=== PATIENT | female | born 1945 | race Caucasian/White ===

== ENCOUNTER 2018-03-10 10:57 | Inpatient (IN) | payer MEDICARE, BC ==
[~2018-03-10] VITALS: Ht 160 cm; Wt 59.0 kg
[~2018-03-10 10:57] MED LIST: AMLO5TAB4 PO; FLUO10CA26 PO; METO100T7 PO; [UNRECOGNIZED DRUG - CODE] PO
[2018-03-10] MEDS ORDERED: MORPHINE SULFATE INJ 2 MG/ML DISP.SYRIN IV ONE (11:30)
[2018-03-10] MEDS ORDERED: IV NS 0.9% 1,000 ML BAG IV ONE (11:30)
[2018-03-10] MEDS ORDERED: ONDANSETRON HCL/PF 4 MG/2 ML VIAL IVP ONE (11:30)
--- NOTE | 2018-03-10 11:41 | NUR ---
BIBRA 87 C/O SYNCOPAL EPISODE CD=[id number]/DL IN THE FIELD. PT AAOX3, VSS. DENIES CP, SOB, DIZZINESS, FREITAS, WEAKNESS, N/V @ THIS TIME. C/O LBP 02/05. PT SEEN & EVAL'D BY DR. MAJOR. WILL CONT TO MONITOR.
[2018-03-10] MEDS ORDERED: ONDANSETRON HCL/PF 4 MG/2 ML VIAL ONE (11:43)
[2018-03-10] MEDS ORDERED: MORPHINE SULFATE INJ 4 MG/ML DISP.SYRIN ONE (11:44)
[2018-03-10 11:54] LABS: CALCIUM, SERUM 8.8 mg/dL (8.5-10.1); CARBON DIOXIDE 30 mmol/L (21-32); CHLORIDE 97 mmol/L (98-107); CREATININE 0.9 mg/dL (0.6-1.3); GLUCOSE 108 mg/dL (74-106); POTASSIUM 4.2 mmol/L (3.5-5.1); SODIUM SERUM 130 mmol/L (136-145); UREA NITROGEN, BLOOD 19 mg/dL (7-18)
[2018-03-10 11:56] LABS: BASOPHILS # (AUTO) 0.1 /CMM (0.0-0.2); BASOPHILS % (AUTO) 1.1 % (0.0-2.0); HEMOGLOBIN 12.6 g/dL (11.5-14.8); LYMPHOCYTES # (AUTO) 0.7 /CMM (0.8-4.8); LYMPHOCYTES % (AUTO) 7.6 % (20.0-44.0)
[2018-03-10 12:00] LABS: ALANINE AMINOTRANSFERASE 22 U/L (12-78); ALBUMIN 3.8 g/dL (3.4-5.0); ALKALINE PHOSPHATASE 79 U/L (46-116); ASPARTATE AMINOTRANSFERASE 25 U/L (15-37); BILIRUBIN,DIRECT 0.2 mg/dL (0.0-0.2); BILIRUBIN,TOTAL 0.9 mg/dL (0.2-1.0); TOTAL PROTEIN, SERUM 7.1 g/dL (6.4-8.2)
[2018-03-10 12:01] LABS: TROPONIN I < 0.017 ng/mL (0.00-0.056)
[2018-03-10 12:03] LABS: INR 0.97 (0.85-1.15)
[2018-03-10 12:10] LABS: EOSINOPHILS % (AUTO) 0.6 % (0.0-6.0); HEMATOCRIT 38 % (33-45); MEAN CORPUSCULAR HEMOGLOBIN 29 PG (26.0-33.0); MEAN CORPUSCULAR HGB CONC 33 g/dl (31.0-36.0); MEAN CORPUSCULAR VOLUME 89 fL (82-100); MONOCYTES # (AUTO) 0.8 /CMM (0.1-1.30); MONOCYTES % (AUTO) 8.5 % (2.0-12.0); NEUTROPHILS # (AUTO) 7.9 /CMM (1.8-8.9); NEUTROPHILS % (AUTO) 82.2 % (43.0-81.0); PLATELET COUNT (AUTO) 311 /CMM (150-450); RDW COEFFICIENT OF VARIATION 12.5 (11.5-15.0); WHITE BLOOD COUNT (AUTO) 9.6 K/uL (4.3-11.0)
--- NOTE | 2018-03-10 12:27 | NUR ---
CALLED NURSING MARKETING ANALYTICS ANALYST AND REQUESTED A TELE BED FOR THIS PT.
--- NOTE | 2018-03-10 13:00 | NUR ---
CALLED [facility] FOR PANEL CALL AND DR VILLA WAS PAGED.
[2018-03-10] MEDS ORDERED: FLUO20CA36 PO (13:10)
[2018-03-10] MEDS ORDERED: AMLO2.5T3 PO (13:10)
[2018-03-10] MEDS ORDERED: CETI-102 PO (13:10)
[2018-03-10] MEDS ORDERED: PANT20TA2 PO (13:10)
--- NOTE | 2018-03-10 13:18 | NUR ---
PT RESTING EYES CLOSED BUT EASILY AWAKEN WITH VERBAL STIMULI. PT STS LBP 08/08 & JENNIFER WELL. DENIES CP, SOB, DIZZINESS, N/V @ THIS TIME. WILL CONT TO MONITOR.
--- NOTE | 2018-03-10 13:31 | NUR ---
PT IS ASSIGNED TO TELE RM#: [id number], DX: SYNCOPE, AND ACCEPTING MD: DR ALLEN VALVERDE
--- NOTE | 2018-03-10 14:30 | NUR ---
CLINICAL COORDINATOR OPENING. PT RECEIVED A&0X3. PT WITH O2 VIA NC AT 2LPM FOR COMFORT. PT SPO2 WNL NO RESP DISTRESS. PT REPORTS 3/10 PAIN TO TAILBONE AREA. PT WITH IVC AT R WRIST, SALINE FLUSH PATENT, IVF TO START. PT HAS MEDICATIONS TO SUBMIT TO PHARMACY. PT BRIEFED ON POC AND IS WITHOUT CONCERN OR COMPLAINT AT THIS TIME.
[2018-03-10] MEDS ORDERED: ENOXAPARIN SODIUM 40 MG/0.4 ML DISP.SYRIN SQ SCH (15:00)
[2018-03-10] MEDS ORDERED: HYDROCODONE/APAP 5/325MG 1 EACH TABLET PO PRN (15:00)
[2018-03-10] MEDS ORDERED: MAG HYDROX/AL HYDROX/SIMETH 30 ML UDC PO PRN (15:00)
[2018-03-10] MEDS ORDERED: ONDANSETRON HCL/PF 4 MG/2 ML VIAL IVP PRN (15:00)
[2018-03-10] MEDS ORDERED: MAGNESIUM HYDROXIDE 30 ML UDC PO PRN (15:00)
[2018-03-10] MEDS ORDERED: ZOLPIDEM TARTRATE 5 MG TABLET PO PRN (15:00)
[2018-03-10] MEDS ORDERED: Z GUARD REMEDY 2 OZ OINT TP PRN (15:00)
[2018-03-10 15:03] LABS: BAND % (MANUAL) 4 % (0.0-5.0); LYMPHOCYTES % (MANUAL) 12 % (16-48); MONOCYTES % (MANUAL) 2 % (0-11.0); NEUTROPHILS % (MANUAL) 82 (42-76)
[2018-03-10] MEDS: IV NS 0.9% 1,000 ML IV PRN (15:15)
[2018-03-10] MEDS: ACETAMINOPHEN 325 MG TABLET PO PRN (15:15)
[2018-03-10 16:00] VITALS: BP 121/77
--- NOTE | 2018-03-10 18:30 | NUR ---
OFFICE ELECTRICIAN CLOSING. PT WITHOUT DISTRESS OR DISCOMFORT AT THIS TIME. IVF PER RX. BED INLOWEST LOCKED WITH HANDRAILSX2 AND CALL CORONA WITHIN REACH. ALL DAY NURSE DUTIES ATTENDED TO AND PT WITHOUT CONCERN OR COMPLAINT AT THIS TIME.
--- NOTE | 2018-03-10 19:30 | NUR ---
DEVULCANIZER TENDER NOTES RECEIVED PATIENT IN BED AWAKE. ALERT AND ORIENTED X4. FAMILY AT BEDSIDE. BREATHING EVEN AND UNLABORED. NO SOB NOTED. TOLERATING ROOM -AIR. NO COMPLAINTS OF PAIN OR DISCOMFORT. IV ACCESS ON LEFT FOREARM #20 INTACT AND PATENT - INFUSING NS @ 75CC/HR. ALL OTHER NEEDS ATTENDED TO. CALL LIGHT WITHIN REACH. BED ON LOWEST LOCKED POSITION. WILL CONTINUE TO MONITOR.
[2018-03-10 20:00] VITALS: BP 113/69
[2018-03-10 21:35] LABS: THYROID STIMULATING HORMONE 1.665 uIU/mL (0.358-3.74)
[2018-03-11] VITALS: BP 130/72
[2018-03-11] MEDS: ACETAMINOPHEN 325 MG TABLET PO PRN ×2 (02:56→09:08)
--- NOTE | 2018-03-11 02:56 | NUR ---
RN ALLERGY NOTES PATIENT COMPLAINED OF PAIN 10/10 ON BACK. ACHING, ESPECIALLY DURING POSITION CHANGE. OFFERED TO GIVE PATIENT A NORCO, BUT PATIENT REFUSED. PATIENT WOULD RATHER HAVE A TYLENOL STATING IT IS MORE EFFECTIVE FOR HER. TYLENOL GIVEN. WILL CONTINUE TO MONITOR.
[2018-03-11 04:00] VITALS: BP 121/71
[2018-03-11] MEDS: IV NS 0.9% 1,000 ML IV PRN (06:09)
[2018-03-11 06:37] LABS: BASOPHILS % (AUTO) 0.4 % (0.0-2.0); EOSINOPHILS % (AUTO) 2.9 % (0.0-6.0); HEMATOCRIT 35 % (33-45); HEMOGLOBIN 11.2 g/dL (11.5-14.8); LYMPHOCYTES % (AUTO) 13.9 % (20.0-44.0); MEAN CORPUSCULAR HEMOGLOBIN 30 PG (26.0-33.0); MEAN CORPUSCULAR HGB CONC 32 g/dl (31.0-36.0); MEAN CORPUSCULAR VOLUME 92 fL (82-100); MONOCYTES # (AUTO) 0.8 /CMM (0.1-1.30); MONOCYTES % (AUTO) 11.1 % (2.0-12.0); NEUTROPHILS # (AUTO) 5.2 /CMM (1.8-8.9); NEUTROPHILS % (AUTO) 71.7 % (43.0-81.0); PLATELET COUNT (AUTO) 263 /CMM (150-450); RDW COEFFICIENT OF VARIATION 13.3 (11.5-15.0); RED BLOOD CELL COUNT(AUTO) 3.78 MIL/uL (4.0-5.2); WHITE BLOOD COUNT (AUTO) 7.3 K/uL (4.3-11.0)
[2018-03-11 06:53] LABS: CALCIUM, SERUM 7.9 mg/dL (8.5-10.1); CARBON DIOXIDE 29 mmol/L (21-32); CHLORIDE 102 mmol/L (98-107); CREATININE 0.8 mg/dL (0.6-1.3); GLUCOSE 91 mg/dL (74-106); MAGNESIUM 1.7 mg/dL (1.8-2.4); PHOSPHORUS 3.4 mg/dL (2.5-4.9); SODIUM SERUM 137 mmol/L (136-145); UREA NITROGEN, BLOOD 13 mg/dL (7-18)
--- NOTE | 2018-03-11 07:00 | NUR ---
GUILLAUME SALAZAR. TELE.SR. PT RECEIVED A&0X3, PT WITH O2 VIA NC AT 2LPM, SPO2 WNL. PT REPORTS MODERATE PAIN CONTROLLED BY PRN TYLENOL AT THIS TIME. PT WITH IVC INTACT AND OPERATIONAL WITH IVF PER RX. PT BED IN LOWEST LOCKED POSITION WITH HANDRAILSX2 AND CALL CORONA WITH REACH. BY BRIEFED ON TODAY'S POC AND IS WITHOUT CONCERN OR COMPLAINT. WILL CONTINUE POC.
--- NOTE | 2018-03-11 07:11 | NUR ---
TRADE SPECIALIST CLOSING NOTES PATIENT IN BED AWAKE. ALERT AND ORIENTED X4. BREATHING EVEN AND UNLABORED. NO SOB NOTED. ON 2L OXYGEN VIA NC FOR COMFORT. WITH MILD PAIN ON BACK. TYLENOL LAST ADMINISTERED AT 0256 - PATIENT STATES IT IS EFFECTIVE. IV ACCESS ON LEFT FOREARM #20 INTACT AND PATENT - INFUSING NS @ 75CC/HR. ALL OTHER NEEDS ATTENDED TO. CALL LIGHT WITHIN REACH. BED ON LOWEST LOCKED POSITION. WILL ENDORSE TO ONCOMING NURSE FOR CONTINUITY OF CARE.
[2018-03-11 07:13] LABS: CHOLESTEROL 170 mg/dL (<200); HDL CHOLESTEROL 50 mg/dL (40-60); LDL 112 mg/dL (0-99); THYROID STIMULATING HORMONE 1.116 uIU/mL (0.358-3.74); TRIGLYCERIDES 42 mg/dL (30-150)
[2018-03-11] MEDS ORDERED: PANTOPRAZOLE 40 MG TABLET.DR PO SCH (07:30)
[2018-03-11 08:33] VITALS: BP 143/72
[2018-03-11] MEDS ORDERED: FLUOXETINE HCL 20 MG CAPSULE PO SCH (09:00)
[2018-03-11] MEDS: Magnesium 1GM/D5W 100ML PREMIX 100 ML IV SCH ×2 (09:08→10:03)
[2018-03-11] MEDS ORDERED: IBUPROFEN 600 MG TABLET PO PRN (12:30)
[2018-03-11 13:09] LABS: APPEARANCE,URINE CLEAR (CLEAR); BILIRUBIN,URINE NEGATIVE (NEGATIVE); BLOOD, URINE NEGATIVE Ery/uL (NEGATIVE); COLOR,URINE YELLOW (YELLOW); KETONES,URINE NEGATIVE (NEGATIVE); LEUKOCYTE ESTERASE ,URINE 1+ (NEGATIVE); NITRITE, URINE POSITIVE (NEGATIVE); PROTEIN,URINE NEGATIVE (NEGATIVE); UGLUCOSE NEGATIVE (NEGATIVE); UROBILINOGEN,URINE 0.2 EU/dL (0.2)
[2018-03-11 13:33] LABS: BACTERIA,URINE 4+ /HPF (None Seen); RBC,URINE 0-2 /HPF (0-2); SQUAMOUS EPITHELIAL CELL,UR 0-2 /HPF (None Seen)
--- NOTE | 2018-03-11 17:02 | NUR ---
MSRN D/C. PT PREPARED FOR D/C PER MD. PT TOLERATING ROOM AIR WITHOUT SOB OR DISTRESS. PT REPORTING ADEQUATE PAIN MANAGEMENT AT THIS TIME. PT IVC REMOVED AND NAD AT SITE. PT WITH ALL BELONGINGS AND DOCUMENT SIGNED. PT PROVIDED WITH WALKER AND SET UP FOR USE. PT DECLINES SANITATION WORKER CLEANING MACHINERY APPOINTMENT AND PREFERS TO SCHEDULE IT HERSELF FROM HOME. PT AND SON BRIEFED ON SOH D/C PACKET, FOLLOW UPS, HHC AND MEDICATIONS, CONTACTS ETC. PT AND FAMILY VERBALIZING UNDERSTANDING, RESOURCES AND INTENT TO FOLLOW POC. PT LEFT WITH WHEELCHAIR MRI TECHNICIAN ESCORT AND ARE WITHOUT CONCERN OR COMPLAINT AND GRATEFUL FOR CARE.
== END 2018-03-11 16:30 | disposition home or self-care (01) | DRG 74 ==
LOC: ER 11:00 → TELE 13:41 → MED 03-11 15:06
DX: G90.8 Other disorders of autonomic nervous system (principal); E87.1 Hypo-osmolality and hyponatremia; I50.32 Chronic diastolic (congestive) heart failure; M19.90 Unspecified osteoarthritis, unspecified site; M48.03 Spinal stenosis, cervicothoracic region; R73.9 Hyperglycemia, unspecified; Z98.1 Arthrodesis status; Z85.22 Personal history of malignant neoplasm of nasal cavities, middle ear, and accessory sinuses; Z98.890 Other specified postprocedural states; M48.061 Spinal stenosis, lumbar region without neurogenic claudication; M48.02 Spinal stenosis, cervical region; E83.42 Hypomagnesemia; I11.0 Hypertensive heart disease with heart failure; Z79.899 Other long term (current) drug therapy; K80.20 Calculus of gallbladder without cholecystitis without obstruction; M41.9 Scoliosis, unspecified
CPT/HCPCS: 36415; 70450-TC; 71045-TC; 72125-TC; 72128-TC; 72131-TC; 80048-TC; 80061-TC; 80076-TC; 81000-TC; 82306; 82728-TC; 82962-TC; 83540-TC; 83735-TC; 84100-TC; 84439-TC; 84443-TC; 84484-TC; 85025-TC; 85730-TC; 87081-TC; 87086-TC; 87186-TC; 93307-TC; 93880-TC; 97110-TC; 97116-TC; 97530-TC; A4606; J2270; J2405; J3475; J7030; Z7610